=== PATIENT | male | born 1965 | race Caucasian/White ===

== ENCOUNTER 2016-11-26 11:12 | Day surgery (SDC) | payer BC ==
[2016-11-23 16:14] VITALS: BMI 28.8
[~2016-11-26 11:12] MED LIST: LACTATED RINGERS 1,000 ML IV SCH; LIDOCAINE 1% 20 ML VIAL (10MG/ML) FOR IV START INTRADERMA PRN
[2016-11-26] MEDS ORDERED: PROPOFOL 10 MG/ML 20 ML VIAL IV ONE (11:47)
[2016-11-26] MEDS ORDERED: MIDAZOLAM 2 MG/2 ML VIAL ONE (11:47)
[2016-11-26] MEDS ORDERED: fentaNYL (PF) 50 MCG/ML 2 ML AMP ONE (11:47)
[2016-11-26 11:49] VITALS: RESP 16; TEMP 97.3
--- NOTE | 2016-11-26 11:51 | P.GSHP ---
History of Present Illness H&P Date: 11/26/16 Chief Complaint: Colon cancer screening Patient here today for colonoscopy. He has not had one before. No bowel related complaints. No family history of colon cancer. Past Medical History Past Medical History: Hyperlipidemia, Hypertension History of Any Multi-Drug Resistant Organisms: None Reported Additional Past Surgical History / Comment(s): CERVICAL FUSION Past Anesthesia/Blood Transfusion Reactions: No Reported Reaction Smoking Status: Never smoker - Past Family History Mother Family Medical History: No Reported History Medications and Allergies Home Medications Medication Instructions Recorded Confirmed Type Atorvastatin [Lipitor] 40 mg PO DAILY 11/23/16 11/26/16 History Bisoprolol-Hctz 10-6.25 mg [Ziac 1 each PO DAILY 11/23/16 11/26/16 History 10-6.25] Losartan Potassium [Cozaar] 100 mg PO DAILY 11/23/16 11/26/16 History Allergies Allergy/AdvReac Type Severity Reaction Status Date / Time No Known Allergies Allergy Verified 11/26/16 11:34 Surgical - Exam Vital Signs Temp Pulse Resp BP Pulse Ox 97.3 F L 76 16 153/93 98 11/26/16 11:38 11/26/16 11:38 11/26/16 11:38 11/26/16 11:38 11/26/16 11:38 Physical exam: General: Well-developed, well-nourished HEENT: Normocephalic, sclerae nonicteric Abdomen: Nontender, nondistended Extremities: No edema Neuro: Alert and oriented Assessment and Plan (1) Colon cancer screening Narrative/Plan: Will proceed with colonoscopy at this time. Status: Acute
--- NOTE | 2016-11-26 12:07 | P.PCN ---
Date of Procedure: 11/26/16 Preoperative Diagnosis: Postoperative Diagnosis: Procedure(s) Performed: PREOPERATIVE DIAGNOSIS: Colon cancer screening POSTOPERATIVE DIAGNOSIS: Sigmoid colon polyp PROCEDURE: Colonoscopy biopsy ANESTHESIA: MAC SURGEON: Vernon Singh M.D. SPECIMENS: Sigmoid polyp ENDOSCOPIC PROCEDURE: The patient was placed on the endoscopy table in the left decubitus position. The Olympus colonoscope was inserted into the anus and passed under direct visualization to the base of the cecum. The appendiceal orifice was visualized. From that point the scope was slowly withdrawn inspecting all surfaces carefully. There were no neoplastic inflammatory or polypoid lesions throughout the cecum, ascending, transverse, and descending colon. In the sigmoid colon a small polyp was identified and removed using the cold biopsy forceps. The remainder of the sigmoid and rectum appeared normal. There is no visible diverticulosis. Digital rectal examination was normal. The patient was taken to the recovery room in stable condition per anesthesia guidelines. RECOMMENDATIONS: Await biopsy results. Implants: Indications for Procedure: Operative Findings: Description of Procedure:
[2016-11-26 12:50] VITALS: BP 128/77; PULSE 76
== END 2016-11-26 12:53 | disposition home or self-care (01) ==
LOC: ORWHC2ENDO 11:12
PROVIDERS: ATTEND Surgery
DX: Z12.11 Encounter for screening for malignant neoplasm of colon (principal); D12.5 Benign neoplasm of sigmoid colon; E78.5 Hyperlipidemia, unspecified; I10 Essential (primary) hypertension; Z79.899 Other long term (current) drug therapy
CPT/HCPCS: 88305; 45380; J2250; J3010; J2704

== ENCOUNTER → 2017-03-25 | Outpatient (CLI) | payer BC ==
--- NOTE | 2017-03-25 14:34 | XR ---
EXAMINATION TYPE: XR cervical spine comp DATE OF EXAM: 03/25/2017 CLINICAL HISTORY: pain COMPARISON: NONE TECHNIQUE: Frontal, lateral, oblique, swimmers, and open mouth view of the cervical spine are obtaine d. FINDINGS: Postoperative changes of fusion at C6-7 with intervertebral body spacer and anterior fixat ion plate in place. Alignment is anatomic. The cervical spine is visualized in its entirety from C1 t hru the top of T1 level. It is satisfactory in alignment without evidence of acute fracture or disloc ation. The pre-vertebral soft tissue appears within normal limits. Mild degenerative narrowing at C5 -6 with ventral spondylosis. The C1-C2 articulation is unremarkable on the open mouth view. The obli que images are within normal limits. IMPRESSION: No acute fracture or dislocation is seen in the cervical spine. Postoperative changes as discussed. Mild degenerative change.
== END | disposition home or self-care (01) ==
LOC: RADXRMAIN 13:25
PROVIDERS: ATTEND Internal Medicine
DX: M47.812 Spondylosis without myelopathy or radiculopathy, cervical region (principal); Z98.890 Other specified postprocedural states
CPT/HCPCS: 72050

== ENCOUNTER → 2017-06-06 | Outpatient (CLI) | payer BC ==
--- NOTE | 2017-06-06 17:31 | MR ---
EXAMINATION TYPE: MR cervical spine wo con DATE OF EXAM: 06/06/2017 COMPARISON: NONE HISTORY: Neck pain, rt arm weakness x 6-8 mos, prior surgery 9 yrs ago TECHNIQUE: Multiplanar, multisequence images of the cervical spine were acquired. C2-C3: No evidence for degenerative disc disease. No disc bulge/herniation or protrusion. No Canal stenosis. Foramina are patent bilaterally. C3-C4: No evidence for degenerative disc disease. No disc bulge/herniation or protrusion. No Canal stenosis. Foramina are patent bilaterally. C4-C5: There is a broad-based right paracentral lateral disc protrusion or small herniation with mode rate to severe right-sided foraminal encroachment. Mild effacement of thecal sac. No spinal cord cont act. C5-C6: With broad-based central and left paracentral disc bulging. Uncovertebral joint hypertrophy wi th mild right foraminal encroachment and mild to moderate left foraminal encroachment. No central wyatt nosis. C6-C7: Postsurgical changes. Broad-based disc bulging but no canal stenosis. Bilateral uncovertebral joint hypertrophy and mild facet arthropathy contribute to mild bilateral foraminal encroachment. C7-T1: No evidence for degenerative disc disease. No disc bulge/herniation or protrusion. No Canal stenosis. Foramina are patent bilaterally. Incidental note is made of a disc herniation at T2-T3 paracentrally to the left which distorts the an terior margin of thecal sac. Cervical segments are intact. There is normal alignment. Cervical spinal cord is of normal signal. Craniovertebral junction relationships are within normal limits. IMPRESSION: 1. Postsurgical changes with abnormal signal within the spinal cord at the T2 images which appears ar tifactual and is not confirmed on the axial images. 2. There is a left paracentral disc herniation incidentally noted at T2-T3 with distortion of the the bruno sac and could be correlated with thoracic spine MRI. 3. Broad-based right paracentral lateral disc herniation C4-C5 with severe right-sided foraminal encr oachment. 4. Broad-based central left paracentral disc bulging C5-C6 with mild to moderate left foraminal encro achment.
== END | disposition home or self-care (01) ==
LOC: RADMRIMAIN 16:26
PROVIDERS: ATTEND Orthopaedic Surgery
DX: M50.221 Other cervical disc displacement at C4-C5 level (principal); Z98.890 Other specified postprocedural states
CPT/HCPCS: 72141

== ENCOUNTER → 2019-05-29 | Outpatient (CLI) | payer BC ==
--- NOTE | 2019-05-30 08:12 | XR ---
EXAMINATION TYPE: XR shoulder complete RT DATE OF EXAM: 05/29/2019 CLINICAL HISTORY: Right shoulder pain and limited range of motion for 5 days. No known injury. TECHNIQUE: Three views of the right shoulder are obtained. COMPARISON: None. FINDINGS: There is no acute fracture/dislocation evident in the right shoulder. Calcification is see n of the greater tuberosity at the insertion of the rotator cuff. Probable punctate bone island of th e right humeral head. The acromioclavicular and glenohumeral joint spaces appear within normal limit s. The visualized ribs are intact and unremarkable. IMPRESSION: 1. No acute fracture or dislocation in the right shoulder. 2. Calcific tendinopathy of the rotator cuff insertional tendons.
== END | disposition home or self-care (01) ==
LOC: RAD 17:01
PROVIDERS: ATTEND Internal Medicine
DX: M75.81 Other shoulder lesions, right shoulder (principal)

== ENCOUNTER 2022-02-23 08:48 | Day surgery (SDC) | payer BC ==
[~2022-02-23 08:48] MED LIST changes: +LIDOCAINE 1% (10MG/ML) FOR IV START INTRADERMA PRN; -LIDOCAINE 1% 20 ML VIAL (10MG/ML) FOR IV START INTRADERMA PRN
[2022-02-23 09:21] VITALS: RESP 16; TEMP 97.6
--- NOTE | 2022-02-23 10:00 | P.GSHP ---
History of Present Illness H&P Date: 02/23/22 Chief Complaint: History of polyps, screening 56-year-old male here today for colonoscopy. Last colonoscopy 5 years ago. Patient had a tubular adenoma at the time. No family history of colon cancer. No bowel complaints. Past Medical History Past Medical History: Hyperlipidemia, Hypertension History of Any Multi-Drug Resistant Organisms: None Reported Additional Past Surgical History / Comment(s): CERVICAL FUSION, colonoscopy Past Anesthesia/Blood Transfusion Reactions: No Reported Reaction Smoking Status: Never smoker - Past Family History Mother Family Medical History: No Reported History Medications and Allergies Home Medications Medication Instructions Recorded Confirmed Type Bisoprolol-Hctz 10-6.25 mg [Ziac 1 each PO DAILY 11/23/16 02/18/22 History 10-6.25] Bp Med(Unknown Name) 1 tab PO DAILY 02/18/22 02/18/22 History Allergies Allergy/AdvReac Type Severity Reaction Status Date / Time No Known Allergies Allergy Verified 02/23/22 09:16 Surgical - Exam Vital Signs Temp Pulse Resp BP Pulse Ox 97.6 F 83 16 154/96 96 02/23/22 09:20 02/23/22 09:20 02/23/22 09:20 02/23/22 09:20 02/23/22 09:20 Physical exam: General: Well-developed, well-nourished HEENT: Normocephalic, sclerae nonicteric Abdomen: Nontender, nondistended Extremities: No edema Neuro: Alert and oriented Assessment and Plan (1) Colon cancer screening Narrative/Plan: Will proceed with colonoscopy at this time. Current Visit: No Status: Acute Code(s): Z12.11 - ENCOUNTER FOR SCREENING FOR MALIGNANT NEOPLASM OF COLON SNOMED Code(s): 910702942
[2022-02-23] MEDS ORDERED: PROPOFOL 10 MG/ML 20 ML VIAL IV ONE (10:01)
--- NOTE | 2022-02-23 10:22 | P.PCN ---
Date of Procedure: 02/23/22 Procedure(s) Performed: PREOPERATIVE DIAGNOSIS: History of polyps, screening POSTOPERATIVE DIAGNOSIS: Rectal polyp PROCEDURE: Colonoscopy with snare polypectomy ANESTHESIA: MAC SURGEON: Vernon Singh M.D. SPECIMENS: Rectal polyp ENDOSCOPIC PROCEDURE: The patient was placed on the endoscopy table in the left decubitus position. The Olympus colonoscope was inserted into the anus and passed under direct visualization to the base of the cecum. The appendiceal orifice was visualized. From that point the scope was slowly withdrawn inspecting all surfaces carefully. There were no neoplastic inflammatory or polypoid lesions throughout the cecum, ascending, transverse, descending, and sigmoid colon. In the rectum a small polyp seen and removed using the snare with cautery technique. No visible diverticulosis. Digital rectal examination was normal. The patient was taken to the recovery room in stable condition per anesthesia guidelines. RECOMMENDATIONS: Await biopsy results. Repeat colonoscopy 5-7.
[2022-02-23 10:44] VITALS: BP 155/91; PULSE 68
== END 2022-02-23 11:12 | disposition home or self-care (01) ==
LOC: ORWHC2ENDO 08:48
PROVIDERS: ATTEND Surgery
DX: Z12.11 Encounter for screening for malignant neoplasm of colon (principal); K62.1 Rectal polyp; I10 Essential (primary) hypertension; E78.5 Hyperlipidemia, unspecified
CPT/HCPCS: 88305; 45385; J2704

== ENCOUNTER 2023-06-28 10:35 | Day surgery (SDC) | payer BC ==
[2023-06-27 09:44] VITALS: BMI 29.0
[~2023-06-28 10:35] MED LIST changes: -LACTATED RINGERS 1,000 ML IV SCH
[2023-06-28] MEDS: LACTATED RINGERS 1,000 ML IV SCH (11:50)
[2023-06-28 12:06] VITALS: TEMP 98.4
[2023-06-28] MEDS ORDERED: LIDOCAINE 1% INJ 10MG/ML (20 ML MDV) ONE (12:39)
[2023-06-28] MEDS ORDERED: PROPOFOL 10 MG/ML 20 ML VIAL IV ONE (12:39)
--- NOTE | 2023-06-28 12:42 | P.GSHP ---
History of Present Illness H&P Date: 06/28/23 Chief Complaint: GERD, colon polyps 58-year-old male here for upper and lower endoscopy. Last colonoscopy 1.5 years ago. Patient had a small rectal polyp. Patient with complaints of worsening reflux symptoms. On chronic antiacid therapy. Past Medical History Past Medical History: GERD/Reflux, Hyperlipidemia, Hypertension History of Any Multi-Drug Resistant Organisms: None Reported Past Surgical History: No Surgical Hx Reported Additional Past Surgical History / Comment(s): CERVICAL FUSION, colonoscopy, Past Anesthesia/Blood Transfusion Reactions: No Reported Reaction Additional Past Anesthesia/Blood Transfusion Reaction / Comment(s): no blood transfusion Smoking Status: Never smoker - Past Family History Mother Family Medical History: No Reported History Medications and Allergies Home Medications Medication Instructions Recorded Confirmed Type Bisoprolol-Hctz 10-6.25 mg [Ziac 1 each PO DAILY 11/23/16 06/27/23 History 10-6.25] Bp Med(Unknown Name) 1 tab PO DAILY 02/18/22 06/27/23 History Amlodipine-Olmesartan 1 tab PO DAILY 04/06/23 06/27/23 History Ezetimibe [Zetia] 10 mg PO DAILY 04/06/23 06/27/23 History Omeprazole 40 mg PO DAILY 06/27/23 06/27/23 History Allergies Allergy/AdvReac Type Severity Reaction Status Date / Time No Known Allergies Allergy Verified 06/28/23 11:33 Surgical - Exam Vital Signs Temp Pulse Resp BP Pulse Ox 98.4 F 90 18 194/96 96 06/28/23 11:42 06/28/23 11:42 06/28/23 11:42 06/28/23 11:42 06/28/23 11:42 Physical exam: General: Well-developed, well-nourished HEENT: Normocephalic, sclerae nonicteric Abdomen: Nontender, nondistended Extremities: No edema Neuro: Alert and oriented Assessment and Plan (1) Colon cancer screening Narrative/Plan: Will proceed with upper and lower endoscopy Current Visit: No Status: Acute Code(s): Z12.11 - ENCOUNTER FOR SCREENING FOR MALIGNANT NEOPLASM OF COLON SNOMED Code(s): 113864443
--- NOTE | 2023-06-28 13:03 | P.PCN ---
Date of Procedure: 06/28/23 Procedure(s) Performed: PREOPERATIVE DIAGNOSIS: GERD, history of colon polyps POSTOPERATIVE DIAGNOSIS: Gastritis, gastric polyp, sigmoid colon polyp x 2 PROCEDURE: 1. EGD with biopsy 2. Colonoscopy with snare polypectomy ANESTHESIA: MAC SURGEON: Vernon Singh M.D. SPECIMENS: Antrum, gastric polyp, colon polyp ENDOSCOPIC PROCEDURE: The patient was on the endoscopy table in the left decubitus position. The Olympus gastroscope was inserted into the oropharynx and passed under direct visualization to the region of the third portion of the duodenum. From that point the scope was slowly withdrawn inspecting all surfaces carefully. There were no neoplastic inflammatory or polypoid lesions throughout the duodenum. The pylorus was widely patent. The stomach was carefully inspected. There was gastritis present. A biopsy of the prepyloric region took place to rule out H. pylori. A small gastric polyp was also seen and biopsied using the cold biopsy forceps. Retroflexion showed a small hiatal hernia. The GE junction was present about 1.5 cm above the diaphragm. No significant inflammation was seen there. The remainder the esophagus was normal. There were no neoplastic inflammatory or polypoid lesions throughout the visualized esophagus. The patient was kept on the endoscopy table in the left decubitus position. The Olympus colonoscope was inserted into the anus and passed under direct visualization to the base of the cecum. The appendiceal orifice was visualized. From that point the scope was slowly withdrawn inspecting all surfaces carefully. There were no neoplastic inflammatory or polypoid lesions throughout the cecum, ascending, transverse, and descending colon. In the sigmoid colon a few small polyps were seen and removed using the snare with cautery technique. The remainder of the sigmoid and rectum was normal. No visible diverticulosis. Digital rectal examination was normal. The patient was taken to the recovery room in stable condition per anesthesia guidelines. RECOMMENDATIONS: Await biopsy results. Continue antiacid therapy.
[2023-06-28 13:52] VITALS: BP 154/78; PULSE 67; RESP 16
== END 2023-06-28 13:43 | disposition home or self-care (01) ==
LOC: ORWHC2ENDO 10:35
PROVIDERS: ATTEND Surgery
DX: Z12.11 Encounter for screening for malignant neoplasm of colon (principal); D12.5 Benign neoplasm of sigmoid colon; K21.9 Gastro-esophageal reflux disease without esophagitis; E78.5 Hyperlipidemia, unspecified; I10 Essential (primary) hypertension; K31.7 Polyp of stomach and duodenum; K44.9 Diaphragmatic hernia without obstruction or gangrene; Z86.010 Personal history of colon polyps; Z79.899 Other long term (current) drug therapy
CPT/HCPCS: 88305; 45385; 43239; J2001; J2704